=== PATIENT | female | born 1985 | race Caucasian/White ===

== ENCOUNTER → 2023-09-01 | Outpatient (CLI) | payer BC ==
[~2023-09-01] MED LIST: BCP TD; CIPRO 250MG TA250 MG PO; DOXYCYCLINE 10100 MG PO; IBU800 M1 PO; MOTRIN 800800 MG/TAB PO; NATURAL IRON65 MG; NORCO 325 MG-7.1 TAB PO; PERCOCET 325 MG1 TA2 PO; PHENERGAN 25 TA25 MG PO; PHENERGAN25 MG RC; PRENATAL; SEROQUEL 1100 MG/TAB PO; SLEEPING MED; SUDAFED30 MG PO; ZOFRAN ODT4 MG PO
== END ==
LOC: MHCPAIN 15:07
DX: M48.02 Spinal stenosis, cervical region (principal); M54.12 Radiculopathy, cervical region; M54.81 Occipital neuralgia

== ENCOUNTER → 2023-09-01 | Outpatient (CLI) | payer BC | LOC: MHCPAIN 15:04 | DX: M48.02 Spinal stenosis, cervical region (principal); M54.12 Radiculopathy, cervical region; M54.81 Occipital neuralgia | CPT/HCPCS: G0463 ==

== ENCOUNTER → 2023-11-12 | Outpatient (CLI) | payer BC ==
[~2023-11-12] MED LIST changes: +AMITRIPTYLINE H10 M1 PO; +INDERAL 10MG10 MG PO; +KLONOPIN 0.5MG0.5 MG PO; +PRIL40 PO; +ROBAXIN 75750 MG/TAB PO; +ROXICODONE 55 MG/TAB PO; +UBRELVY50 MG PO; +VYVANSE20 MG PO
== END ==
LOC: MHCPAIN 14:52
DX: M54.50 Low back pain, unspecified (principal); M54.2 Cervicalgia; G24.8 Other dystonia
CPT/HCPCS: G0463

== ENCOUNTER → 2023-12-17 | Outpatient (CLI) | payer BC | LOC: MHCPAIN 11:00 | DX: M54.2 Cervicalgia (principal); R42 Dizziness and giddiness; M47.812 Spondylosis without myelopathy or radiculopathy, cervical region | CPT/HCPCS: G0463 ==

== ENCOUNTER → 2023-12-22 | Outpatient (CLI) | payer BC | LOC: MHCPAIN 13:30 | DX: M54.2 Cervicalgia (principal); M79.2 Neuralgia and neuritis, unspecified; G24.8 Other dystonia | CPT/HCPCS: G0463 ==

== ENCOUNTER → 2024-04-07 | Outpatient (CLI) | payer BC | LOC: MHCPAIN 14:44 | DX: M54.2 Cervicalgia (principal); G24.8 Other dystonia; M54.50 Low back pain, unspecified; M43.17 Spondylolisthesis, lumbosacral region | CPT/HCPCS: G0463 ==